=== PATIENT | female | born 1965 | race Caucasian/White ===

== ENCOUNTER 2018-01-21 16:05 | Emergency (ER) | payer OTHER ==
[~2018-01-21] VITALS: Ht 149.9 cm; Wt 72.7 kg
[~2018-01-21 16:05] MED LIST: HYDR-3971 PO; NOCURR
[2018-01-21 16:11] VITALS: BP 149/115
== END 2018-01-21 18:30 | disposition left against medical advice (07) ==
LOC: EMS 16:07
DX: S00.83XA Contusion of other part of head, initial encounter (principal); S50.02XA Contusion of left elbow, initial encounter; M79.671 Pain in right foot; W18.39XA Other fall on same level, initial encounter; Y93.89 Activity, other specified; Y92.89 Other specified places as the place of occurrence of the external cause; Y99.8 Other external cause status; Z53.21 Procedure and treatment not carried out due to patient leaving prior to being seen by health care provider

== ENCOUNTER 2018-11-18 11:15 | Emergency (ER) | payer OTHER ==
[~2018-11-18] VITALS: Ht 147.3 cm; Wt 78.2 kg
[~2018-11-18 11:15] MED LIST changes: -HYDR-3971 PO
[2018-11-18] MEDS ORDERED: METH10 PO (11:29)
[2018-11-18] MEDS ORDERED: LISI-661 PO (11:29)
[2018-11-18 12:00] LABS: BASOPHILS % (AUTO) 1.6 % (0.0-2.0); EOSINOPHILS % (AUTO) 0.2 % (1.0-6.0); HEMATOCRIT 36.6 % (36-46); LYMPHOCYTES # (AUTO) 1.7 K/uL (1.0-4.8); LYMPHOCYTES % (AUTO) 26.4 % (22.0-44.0); MEAN CORPUSCULAR HGB CONC 32.8 G/dL (31.0-37.0); MEAN CORPUSCULAR VOLUME 101 fL (80-100); MONOCYTES # (AUTO) 0.6 K/uL (0.1-1.0); MONOCYTES % (AUTO) 9.9 % (2.0-9.0); NEUTROPHILS % (AUTO) 61.9 % (40.0-70.0); PLATELET COUNT (AUTO) 194 K/uL (150-450); RED BLOOD CELL COUNT(AUTO) 3.64 MIL/uL (4.00-5.20); RED CELL DISTRIBUTION WIDTH 15.4 % (11.5-14.5)
[2018-11-18 12:16] LABS: ANION GAP 10 mmol/L (8-16); CALCIUM, TOTAL 9.3 mg/dL (8.8-10.5); CARBON DIOXIDE 27 mmol/L (22-29); CHLORIDE 99 mmol/L (98-107); CREATININE 0.75 mg/dL (0.60-1.30); GLOMERULAR FILTR. RATE CALC > 60 mL/min (>60); GLUCOSE,RANDOM 82 mg/dL (70-110); POTASSIUM 3.8 mmol/L (3.5-5.1); SODIUM SERUM 136 mmol/L (136-145); UREA NITROGEN, BLOOD 5 mg/dL (7-18)
[2018-11-18 12:22] LABS: ALANINE AMINOTRANSFERASE 45 U/L (12-78); ALBUMIN 3.7 g/dL (3.4-5.0); ALKALINE PHOSPHATASE 147 U/L (46-116); ASPARTATE AMINOTRANSFERASE 77 U/L (15-37); B-TYPE NATRIURETIC PEPTIDE 199 pg/mL (0-100); BILIRUBIN,TOTAL 0.8 mg/dL (0.1-1.0); URIC ACID 4.7 mg/dL (2.6-7.2)
[2018-11-18] MEDS ORDERED: KETOROLAC TROMETHAMINE 60 MG/2 ML VIAL IM ONE (14:00)
[2018-11-18 15:25] VITALS: BP 119/63
== END 2018-11-18 15:43 | disposition home or self-care (01) ==
LOC: EMS 11:15
DX: S82.831A Other fracture of upper and lower end of right fibula, initial encounter for closed fracture (principal); S82.301A Unspecified fracture of lower end of right tibia, initial encounter for closed fracture; I10 Essential (primary) hypertension; F11.90 Opioid use, unspecified, uncomplicated; Z87.891 Personal history of nicotine dependence; X58.XXXA Exposure to other specified factors, initial encounter; Y93.89 Activity, other specified; Y92.89 Other specified places as the place of occurrence of the external cause; Y99.8 Other external cause status
CPT/HCPCS: 29515; 36415; 71045; 73610; 73630; 80053; 83880; 84550; 85025; 85379; 93971; 96372; 99284; J1885

== ENCOUNTER 2020-06-03 16:16 | Emergency (ER) | payer OTHER ==
[~2020-06-03] VITALS: Ht 154.9 cm; Wt 90.0 kg
[~2020-06-03 16:16] MED LIST changes: +LISI-661 PO; +MECL-160 PO; +METH10 PO; -NOCURR
[2020-06-03 16:36] VITALS: BP 112/68
== END 2020-06-03 18:52 | disposition left against medical advice (07) ==
LOC: EMS 16:16
DX: R06.02 Shortness of breath (principal); Z53.21 Procedure and treatment not carried out due to patient leaving prior to being seen by health care provider